=== PATIENT | female | born 1970 | race Caucasian/White ===

== ENCOUNTER → 2016-08-07 | Outpatient (CLI) | payer OTHER ==
--- NOTE | 2016-08-07 18:20 | REP ---
Clinical: Bronchitis. Technique: PA and lateral. Comparison: 06/13/2016. Findings: Stable Clbklm-[id number]-Nzlm with tip in the SVC. Mediastinum and cardiac silhouette normal. Lung mccarty are clear and without consolidation, effusion, or pneumothorax. Skeletal structures are intact. Impression: Stable chest x-ray. No acute cardiopulmonary process or focal consolidation. Signed by Lance Thompson MD 08/07/2016 06:11 P
== END ==
LOC: M WUC 18:01
PROVIDERS: ATTEND Physician Assistant
DX: J20.9 Acute bronchitis, unspecified (principal)

== ENCOUNTER → 2016-08-16 | Outpatient (CLI) | payer OTHER ==
--- NOTE | 2016-09-08 01:25 | ECWPNPC ---
PATIENT NAME: OPAL SRIVASTAVA : 1970 GENDER: FEMALE VISIT DATE: 08/16/2016 DISCHARGE DATE: 08/16/16 1009 VISIT LOCKED DATE TIME: PHYSICIAN: COURTNEY FONTANEZ RESOURCE: COURTNEY FONTANEZ REASON FOR APPOINTMENT 1. FOLLOWUP-BACK/LEGS HISTORY OF PRESENT ILLNESS HISTORY OF PRESENT ILLNESS: PAIN THE PATIENT DESCRIBES THE PAIN... FALL RISK SCREENING: SCREENING :NO FALLS IN THE PAST YEAR TODAY'S VISIT: NOTES: RATES PAIN LEEVEL TODAY 9/10. DESCRIBES PAIN CONSTANT, ACHING , BURNING, SHARP AND STABBING AND SHOOTING. HAS BEEN HAVING INTENSE RIGHT SIDED HEAD PAIN IN THE OCCIPUT AND TEMPRAL AREA. PAIN RADIATES TO RIGHT EAR. HAS BEEN HAVING INTENSE REACTION TO SOUND. LIGHT BOTHERING. THIS HAS BEEN PRESENT FOR 4-5 DAYS. IS HAVING FACIAL TWITCHES. IS HAVING DIFFICULTY WITH LOSS OF BALANCE IN LEFT LEG - HAS NUMBNESSFFROM HIP TO FOOT LEFT LEG. NO DIFFICULTY WITH RIGHT LEG.. CURRENT MEDICATIONS TAKING CYMBALTA 60 MG CAPSULE DELAYED RELEASE PARTICLES 1 CAPSULE ORALLY ONCE A DAY TAKING AMBIEN 10 MG TABLET 1 TABLET AT BEDTIME NEEDED ORALLY ONCE A DAY TAKING ALBUTEROL SULFATE 108 (90 BASE) MCG/ACT AEROSOL POWDER BREATH ACTIVATED 1 PUFF NEEDED INHALATION EVERY 4 HRS TAKING TRAZODONE HCL 150 MG TABLET 1 TABLET AT BEDTIME NEEDED ORALLY ONCE A DAY TAKING FIORICET APAP 325-50-40 CAPSULE 1 CAPSULE NEEDED ORALLY EVERY 8 HOURS PRN FOR PAIN MDD2 TAKING HYDROCODONE-ACETAMINOPHEN 7.5-325 MG TABLET 1 TABLET NEEDED ORALLY EVERY 8 HRS PRN FOR PAIN MDD3 TAKING GABAPENTIN 600 MG TABLET 1 TABLET ORALLY FOUR TIMES DAILY FOR PAIN TAKING MELOXICAM 7.5 MG TABLET 1 TABLET ORALLY ONCE A DAY PRN FOR PAIN MEDICATION LIST REVIEWED AND RECONCILED WITH THE PATIENT PAST MEDICAL HISTORY STATES HISTORY OF NEUROPATHY -- UNKNOWN CAUSE, NOT SURE WHERE DIAGNOSED, OR TX DEGENERATIVE JOINT DISEASE, 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 BULIMIA CHRONIC PAIN, HAS SEEN PAIN MANAGEMENT BEFORE HISTORY OF RENAL STONES, LAST 05/2015 ALLERGIES MACROBID: HIVES: ALLERGY ZOLOFT: HIVES: ALLERGY TOPAMAX: PALPITATIONS: SIDE EFFECTS KEFLEX: HIVES: ALLERGY VANCOMYCIN HCL: ITCHING: ALLERGY AMOXICILLIN: RASH: ALLERGY SOCIAL HISTORY GENERAL: TOBACCO USE ARE YOU A:NONSMOKER LEARNING 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 NEW PATIENT PAIN DIARY TODAY'S VISITNOTES FROM 0-10, WHAT LEVEL IS YOUR PAIN TODAY?0 PAIN CLINIC PFS, CLERGY, PUBLIC HEALTH REFERRALS PFS REFERRAL NEEDED?NO CLERGY REFERRAL NEEDED?NO PUBLIC HEALTH REFERRAL NEEDED?NO WAS THE PROVIDER NOTIFIED OF ANY PERTINENT INFO?NO PFS REFERRAL NEEDED?NO CLERGY REFERRAL NEEDED?NO PUBLIC HEALTH REFERRAL NEEDED?NO WAS THE PROVIDER NOTIFIED OF ANY PERTINENT INFO?NO REVIEW OF SYSTEMS CONSTITUTIONAL: ANY CHANGE IN YOUR MEDICAL CONDITION? NO . CHILLS NO . FEVER NO . INFECTION: DO YOU HAVE NEW INFECTIONS? NO . DO YOU HAVE HISTORY OF MRSA? NO . MUSCULOSKELETAL: ANY NEW PATTERNS OF PAIN OR NUMBNESS? YES, PAIN IN THE BACK OF HEAD AND LEFT LEG WEAKER AND NUMBNESS . GASTROENTEROLOGY: ANY NEW CHANGE IN BOWEL CONTROL? NO . GENITOURINARY: ANY NEW CHANGE IN BLADDER CONTROL? NO . IS THERE A CHANCE YOU COULD BE ? NO . HEMATOLOGY/LYMPH: DO YOU TAKE ANY BLOOD THINNERS? (FOR EXAMPLE- COUMADIN, PLAVIX, AGGRENOX, PLATEL, PRADAXA, OR XARELTO) NO . WHEN WAS YOUR LAST DOSE? DATE: TIME: . NEUROLOGY: HAVE YOU FALLEN IN THE PAST 6 MONTHS? NO . ANY NEW EXTREMITY NUMBNESS OR WEAKNESS? NO . CARDIOLOGY: DO YOU HAVE A PACEMAKER OR DEFIBRILLATOR? NO . RESPIRATORY: HAVE YOU BEEN SICK IN THE PAST WEEK? YES - HAS HAD PNEUMONIA, BRONCHITIS AND PERSISTANT COUGH. . FEVER NO . FLU LIKE SYMPTOMS? NO . COUGH YES . INTEGUMENTARY: DO YOU HAVE ANY RASHES OR OPEN SORES? NO . ALLERGIC/IMMUNO: ARE YOU ALLERGIC TO SHELLFISH OR IV DYE? NO . ANY NEW ALLERGIES? NO . PSYCHIATRIC: DO YOU HAVE THOUGHTS OF HURTING YOURSELF OR SOMEONE ELSE? NO . ARE YOU ABUSED, NEGLECTED, OR IN AN UNSAFE ENVIRONMENT? NO . ENDOCRINOLOGY: ARE YOU DIABETIC? NO . OTHER: DO YOU NEED ANY PRESCRIPTIONS? YES . IF YES, PLEASE LIST: GABAPENTIN, FIORICET, HYDROCODONE, MELOXICAM, AND AMBIEN . ANY NEW PROBLEMS WITH YOUR MEDICATIONS? NO . WHEN DID YOU LAST EAT? ____ . WHEN DID YOU LAST DRINK? ____ . WHAT DID YOU LAST DRINK? ____ . NAME OF PERSON DRIVING YOU HOME? ____ . DO YOU HAVE ANY OTHER QUESTIONS OR CONCERNS NO . PSYCHOLOGY: DEPRESSION WILL BE SEEING [facility] NEXT WEEK IN [facility] . REVIEWED BY: PROVIDER: COURTNEY CORADO . VITAL SIGNS WT 220 LBS, HT 69 IN, BMI 32.48 INDEX, BP 122/62 MANUAL, HR 94 /MIN, RR 16 /MIN, TEMP 96.0 F, OXYGEN SAT % 96, NA INITIALS TL 0911, REVIEWED BY: CS. EXAMINATION GENERAL EXAMINATION: PSYCHALERT , ORIENTED X 3 , APPROPRIATE MOOD AND AFFECT . LUNGS:CLEAR TO AUSCULTATION BILATERALLY, DECREASED AIR ENTRY AT BASES. HEART:HEART RATE REGULAR. MUSCULOSKELETAL:MUSCLE STRENGTH TESTING 5/5 BILATERAL UPPER AND LOWER EXTREMITIES. POINT TENDERNESS OVER THE MIDTHORACIC SPINOUS PROCESSES AND ACROSS THE THORACIC PARAVERTEBRAL MUSCULATURE. POINT TENDERNESS OVER THE LUMBAR SPINOUS PROCESSES AND ACROSS THE LUMBAR PARAVERTEBRAL MUSCULATURE. ABLE TO RISE TO A STANDING POSITION. GAIT IS SLOW BUT NONANTALGIC. TRIGGER POINTS ARE IDENTIFIED WITH PALPATION OVER THE MIDTHORACIC AND LUMBAR MUSCLES. TIGHT FIBROUS BANDS ARE IDENTIFIED. RESTRICTION OF RANGE OF MOTION WITH BACK ROTATION FLEXION AND EXTENSION.. ASSESSMENTS MYALGIA - M79.1 (PRIMARY) INTERVERTEBRAL DISC DISORDERS WITH RADICULOPATHY, LUMBAR REGION - M51.16 INTERVERTEBRAL DISC DISORDERS WITH RADICULOPATHY, LUMBOSACRAL REGION - M51.17 INTRACTABLE MIGRAINE WITHOUT AURA AND WITHOUT STATUS MIGRAINOSUS - G43.019 TREATMENT MYALGIA REFILL CYMBALTA CAPSULE DELAYED RELEASE PARTICLES, 60 MG, 1 CAPSULE, ORALLY, ONCE A DAY, 30 DAY(S), 30, REFILLS 1 REFILL AMBIEN TABLET, 10 MG, 1 TABLET AT BEDTIME NEEDED, ORALLY, ONCE A DAY, 30 DAY(S), 15, REFILLS 0 STOP HYDROCODONE-ACETAMINOPHEN TABLET, 7.5-325 MG, 1 TABLET NEEDED, ORALLY, EVERY 8 HRS PRN FOR PAIN MDD3 REFILL FIORICET APAP CAPSULE, 325-50-40, 1 CAPSULE NEEDED, ORALLY, EVERY 8 HOURS PRN FOR PAIN MDD2, 30 DAY(S), 20, REFILLS 1 REFILL MELOXICAM TABLET, 7.5 MG, 1 TABLET, ORALLY, ONCE A DAY PRN FOR PAIN, 30 DAY(S), 30, REFILLS 1 REFILL GABAPENTIN TABLET, 600 MG, 1 TABLET, ORALLY, FOUR TIMES DAILY FOR PAIN, 30 DAY(S), 120, REFILLS 2 START NORCO TABLET, 5-325 MG, 1 TABLET NEEDED, ORALLY, EVERY 6 -8 HRS MDD-3, 30 DAY(S), 90, REFILLS 0 PROCEDURE CODES FA211 ESTABILISHED PATIENT [facility] CHARGE FOLLOW UP 26-28 DAYS ELECTRONICALLY SIGNED BY RAMU SAUL ON 09/07/2016 AT 10:24 AM EST DISCLAIMER : THIS IS A VISIT SUMMARY EXTRACTED FROM THE [employer] CHART. IT IS NOT A COPY OF THE [employer] PROGRESS NOTE. MTDD
== END ==
LOC: M PAIN 09:20
PROVIDERS: ATTEND Nurse Practitioner Family
DX: M79.1 Myalgia (principal); M51.16 Intervertebral disc disorders with radiculopathy, lumbar region; M51.17 Intervertebral disc disorders with radiculopathy, lumbosacral region; G43.019 Migraine without aura, intractable, without status migrainosus; G89.29 Other chronic pain; Z79.891 Long term (current) use of opiate analgesic; Z79.899 Other long term (current) drug therapy; Z88.0 Allergy status to penicillin; Z88.1 Allergy status to other antibiotic agents; Z88.8 Allergy status to other drugs, medicaments and biological substances

== ENCOUNTER 2016-09-13 10:46 | Emergency (ER) | payer OTHER ==
[2016-09-13] MEDS ORDERED: KETOROLAC 30 MG/ML VIAL (J1885) As Ordered ONE (11:19)
[2016-09-13] MEDS ORDERED: diphenhydrAMINE 25 MG CAP As Ordered ONE (11:48)
[2016-09-13] MEDS ORDERED: methylPREDNISolone INJ 125 MG/2 ML VIAL (J2930) As Ordered ONE (11:48)
[2016-09-13] MEDS ORDERED: FAMOTIDINE 20 MG TAB As Ordered ONE (11:48)
--- NOTE | 2016-09-13 13:28 | EDDOCDS ---
Nurse's Notes [facility] Name: Yu Monahan Age: 45 yrs Sex: Female : 1970 Arrival Date: 09/13/2016 Time: 10:46 Bed TR8 Private MD: Diagnosis: Pain in left leg Presentation: 09/13 10:51 Presenting complaint: Patient states: Left leg cramping progressed to numbness since mlb1 0100 also reports headache and cough. Adult Sepsis Screening: The patient does not have new or worsening altered mentation. Patient's respiratory rate is less than 22. Systolic blood pressure is greater than 100. Patient has a qSOFA score of 0- Negative Sepsis Screen. Suicide/Homicide risk assessment- the patient denies having any suicidal and/or homicidal ideations and does not present with any other emotional, behavioral or mental health complaints. Status: Patient is not a supervisor volunteer services or dependent. Transition of care: patient was not received from another setting of care. 10:51 Acuity: FRANCES Level 4 mlb1 10:51 Method Of Arrival: Walkin/Carried/Asstd mlb1 Triage Assessment: 10:53 General: Appears in no apparent distress, Behavior is cooperative. Pain: Location: left mlb1 hip, head Pain currently is 9 out of 10 on a pain scale. HIV screening NA for this visit Offered previously. 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 gabapentin 600 mg Oral tab 1 tab 3 times per day 2. [place] 5-325 mg Oral tab 1 tab every 4-6 hours (Last dose: 09/12/2016 20:30) 3. trazodone 100 mg Oral tab nightly - PMHx: bulemia; Chronic UTI; L4, L5 disc problems, chronic low back pain; Migraines; neuropathy; Scoliosis; stomach problems, no diagnosis; - PSHx: Breast Reduction; Cholecystectomy; Gall Bladder Removal; cyst removal from ovaries; Sinus Surgery; kidney stones surgeries; Infusaport; - Social history: Smoking status: Patient states former smoker of tobacco. No barriers to communication noted, The patient speaks fluent Georgian, Speaks appropriately for age. - Family history: No immediate family members are acutely ill. - : The pt / caregiver states he / she is not on anticoagulants. Home medication list is obtained from the patient. - Exposure Risk Screening:: None identified. Screenin:29 Screening information is obtained from the patient. Fall risk: No risks identified. mb9 Assistance ADL's: requires no assistance with activities of daily living. Abuse/DV Screen: The patient / caregiver reports he/she is: not in a situation that causes fear, pain or injury. Nutritional screening: No deficits noted. Advance Directives: There is no active DNR order. home support is adequate. Assessment: 11:29 General: Appears uncomfortable, Behavior is appropriate for age, cooperative. Pain: mb9 Location: left leg Pain currently is 5 out of 10 on a pain scale. Respiratory: Airway is patent Respiratory effort is even, unlabored. 12:01 Reassessment: Patient states symptoms have not improved. General: Appears mb9 uncomfortable, Behavior is fussy. Derm: pt appears to have a few small bumps to bilateral forearms. Reports itching. 12:39 Reassessment: Patient states symptoms have not improved. General: Appears mb9 uncomfortable, Behavior is appropriate for age, cooperative. Pain: Location: left leg Pain currently is 5 out of 10 on a pain scale. Vital Signs: 10:48 BP 151 / 95 RA Sitting (auto/reg); Pulse 98; Resp 18; Temp 98.2(O); Pulse Ox 98% on jrd R/A; Weight 100.7 kg (R); Height 5 ft. 9 in. (175.26 cm) (R); Pain 9/10; 12:38 BP 136 / 73; Pulse 79; Resp 17; Temp 98.2(T); Pulse Ox 100% on R/A; mb9 12:38 Pain 5/10; mb9 10:48 Body Mass Index 32.78 (100.70 kg, 175.26 cm) [facility] Vitals: 10:48 Log In Time: September 13, 2016 at 10:40. [facility] ED Course: 10:48 Patient visited by Tha Tavares PCA. jrd 10:48 Patient moved to Waiting jrd 10:49 Patient visited by Tha Tavares PCA. jrd 10:49 Patient moved to Pre RCE jrd 10:[address] Mari RN. mlb1 10:50 Patient moved to Triage 1 mlb1 10:51 Triage Initiated mlb1 10:[address] Mari RN. mlb1 11:03 [facility] Solis [facility] dt4 11:03 Gopal Oden MD is Attending Physician. dt4 11:03 Patient visited by Juju Solis PA-C. dt4 11:21 Patient moved to PD mb9 11:29 The patient / caregiver is instructed regarding the plan of care and ED course. mb9 11:29 No IV's were initiated during this patient's visit. No procedures done that require mb9 assistance. 11:31 [facility] Payment Agreement was scanned into [employer] and attached to record. lg 12:[address] RN. mb9 12:30 [facility] is Referral Physician. dt4 12:40 Patient moved to TR8 mb9 Administered Medications: 11:24 Drug: ketorolac 60 mg [ketorolac 30 mg/mL (1 mL) injection solution (2 mL)] Route: IM; mb9 Site: right gluteus; 12:38 Follow up: Pain 5/10 Adult; Response: Pain is unchanged, physician notified mb9 12:00 Drug: methylPREDNISolone Sodium Succinate 125 mg [methylprednisolone sodium succ 125 mg mb9 solution for injection (125 mg)] Route: IM; Site: left gluteus; 12:00 Drug: diphenhydrAMINE 50 mg [diphenhydramine 25 mg capsule (2 caps)] Route: PO; mb9 12:00 Drug: Famotidine 20 mg [famotidine 20 mg tablet (1 tabs)] Route: PO; mb9 Order Results: There are currently no results for this order. Outcome: 12:30 Discharge ordered by Provider. dt4 12:39 Discharge Assessment: patient administered narcotics - no. The following High Risk mb9 Discharge criteria are identified: None. Condition: good Condition: stable Condition: improved. Discharge instructions given to patient, Instructed on discharge instructions, follow up and referral plans. medication usage, Demonstrated understanding of instructions, medications, Pt was receptive of discharge instructions/ teaching. No special radiology studies were completed. Property :Personal belongings accompany Pt. 13:27 Patient left the ED. mb9 Signatures: Matias Vasques, Reg Reg lg Lane Mari, RN RN mlb1 Juju Solis PA-C [facility]AP[facility] dt4 Tha Tavares, BODY MASKER BODY MASKER jrd Lane Goldman,RN RN mb9 CARLAD
--- NOTE | 2016-09-13 13:28 | EDDOCDS ---
Physician Documentation [facility] Name: Yu Monahan Age: 45 yrs Sex: Female : 1970 Arrival Date: 09/13/2016 Time: 10:46 Bed TR8 Private MD: Disposition: 09/13/16 12:30 Discharged to Home/Self Care. Impression: Pain in left leg. - Condition is Stable. - Discharge Instructions: Musculoskeletal Pain. - Medication Reconciliation, Local Pharmacy Hours form. - Follow up: Emergency Department; When: As needed; Reason: Worsening of conditions. Follow up: [facility]; When: Call to arrange an appointment; Reason: Recheck today's complaints, Continuance of care, To establish care. - Problem is new. - Symptoms are unchanged. - Notes: PLEASE FOLLOW UP WITH YOUR PRIMARY CARE PROVIDER IN THE NEXT FEW DAYS TO RECHECK YOUR SYMPTOMS. YOU MAY TAKE YOUR PAIN MEDICATIONS AT HOME, DIRECTED FOR PAIN. Historical: - Allergies: Ciprofloxacin; Keflex; Macrobid; Topamax; Vancomycin; Zoloft; - Home Meds: 1. gabapentin 600 mg Oral tab 1 tab 3 times per day 2. [place] 5-325 mg Oral tab 1 tab every 4-6 hours (Last dose: 09/12/2016 20:30) 3. trazodone 100 mg Oral tab nightly - PMHx: bulemia; Chronic UTI; L4, L5 disc problems, chronic low back pain; Migraines; neuropathy; Scoliosis; stomach problems, no diagnosis; - PSHx: Breast Reduction; Cholecystectomy; Gall Bladder Removal; cyst removal from ovaries; Sinus Surgery; kidney stones surgeries; Infusaport; - Social history: Smoking status: Patient states former smoker of tobacco. No barriers to communication noted, The patient speaks fluent Luxembourger, Speaks appropriately for age. - Family history: No immediate family members are acutely ill. - : The pt / caregiver states he / she is not on anticoagulants. Home medication list is obtained from the patient. - Exposure Risk Screening:: None identified. BACTERIOLOGIST MEDICAL: 09/13 10:54 LMP 08/23/2016 mlb1 Vital Signs: 10:48 BP 151 / 95 RA Sitting (auto/reg); Pulse 98; Resp 18; Temp 98.2(O); Pulse Ox 98% on jrd R/A; Weight 100.7 kg / 222.01 lbs (R); Height 5 ft. 9 in. (175.26 cm) (R); Pain 9/10; 12:38 BP 136 / 73; Pulse 79; Resp 17; Temp 98.2(T); Pulse Ox 100% on R/A; mb9 12:38 Pain 5/10; mb9 10:48 Body Mass Index 32.78 (100.70 kg, 175.26 cm) jrd MDM: 11:14 Financial registration complete. lg 11:17 ketorolac 60 mg IM once ordered. dt4 11:31 [facility] Payment Agreement was scanned into [employer] and attached to record. lg 11:35 methylPREDNISolone Sodium Succinate 125 mg IM once ordered. dt4 11:36 diphenhydrAMINE 50 mg PO once ordered. dt4 11:36 Famotidine 20 mg PO once ordered. dt4 Administered Medications: 11:24 Drug: ketorolac 60 mg [ketorolac 30 mg/mL (1 mL) injection solution (2 mL)] Route: IM; mb9 Site: right gluteus; 12:38 Follow up: Pain 5/10 Adult; Response: Pain is unchanged, physician notified mb9 12:00 Drug: methylPREDNISolone Sodium Succinate 125 mg [methylprednisolone sodium succ 125 mg mb9 solution for injection (125 mg)] Route: IM; Site: left gluteus; 12:00 Drug: diphenhydrAMINE 50 mg [diphenhydramine 25 mg capsule (2 caps)] Route: PO; mb9 12:00 Drug: Famotidine 20 mg [famotidine 20 mg tablet (1 tabs)] Route: PO; mb9 Signatures: Matias Vasques, Vlad Reg lg Lane Mari, RN RN mlb1 Juju Solis PA-C PAMadi dt4 Lane Goldman RN RN mb9 The chart was reviewed and I authenticate all verbal orders and agree with the evaluation and treatment provided.Attachments: 11:31 [facility] Payment Agreement lg MTDD
--- NOTE | 2016-09-15 14:28 | EDDOCDS ---
Nurse's Notes [facility] Name: Yu Monahan Age: 45 yrs Sex: Female : 1970 Arrival Date: 09/13/2016 Time: 10:46 Bed TR8 Private MD: Diagnosis: Pain in left leg Presentation: 09/13 10:51 Presenting complaint: Patient states: Left leg cramping progressed to numbness since mlb1 0100 also reports headache and cough. Adult Sepsis Screening: The patient does not have new or worsening altered mentation. Patient's respiratory rate is less than 22. Systolic blood pressure is greater than 100. Patient has a qSOFA score of 0- Negative Sepsis Screen. Suicide/Homicide risk assessment- the patient denies having any suicidal and/or homicidal ideations and does not present with any other emotional, behavioral or mental health complaints. 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 Transition of care: patient was not received from another setting of care. 10:51 Acuity: FRANCES Level 4 mlb1 10:51 Method Of Arrival: Walkin/Carried/Asstd mlb1 Triage Assessment: 10:53 General: Appears in no apparent distress, Behavior is cooperative. Pain: Location: left mlb1 hip, head Pain currently is 9 out of 10 on a pain scale. HIV screening NA for this visit Offered previously. 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 gabapentin 600 mg Oral tab 1 tab 3 times per day 2. [place] 5-325 mg Oral tab 1 tab every 4-6 hours (Last dose: 09/12/2016 20:30) 3. trazodone 100 mg Oral tab nightly - PMHx: bulemia; Chronic UTI; L4, L5 disc problems, chronic low back pain; Migraines; neuropathy; Scoliosis; stomach problems, no diagnosis; - PSHx: Breast Reduction; Cholecystectomy; Gall Bladder Removal; cyst removal from ovaries; Sinus Surgery; kidney stones surgeries; Infusaport; - Social history: Smoking status: Patient states former smoker of tobacco. No barriers to communication noted, The patient speaks fluent Setswana, Speaks appropriately for age. - Family history: No immediate family members are acutely ill. - : The pt / caregiver states he / she is not on anticoagulants. Home medication list is obtained from the patient. - Exposure Risk Screening:: None identified. Screenin:29 Screening information is obtained from the patient. Fall risk: No risks identified. mb9 Assistance ADL's: requires no assistance with activities of daily living. Abuse/DV Screen: The patient / caregiver reports he/she is: not in a situation that causes fear, pain or injury. Nutritional screening: No deficits noted. Advance Directives: There is no active DNR order. home support is adequate. Assessment: 11:29 General: Appears uncomfortable, Behavior is appropriate for age, cooperative. Pain: mb9 Location: left leg Pain currently is 5 out of 10 on a pain scale. Respiratory: Airway is patent Respiratory effort is even, unlabored. 12:01 Reassessment: Patient states symptoms have not improved. General: Appears mb9 uncomfortable, Behavior is fussy. Derm: pt appears to have a few small bumps to bilateral forearms. Reports itching. 12:39 Reassessment: Patient states symptoms have not improved. General: Appears mb9 uncomfortable, Behavior is appropriate for age, cooperative. Pain: Location: left leg Pain currently is 5 out of 10 on a pain scale. Vital Signs: 10:48 BP 151 / 95 RA Sitting (auto/reg); Pulse 98; Resp 18; Temp 98.2(O); Pulse Ox 98% on jrd R/A; Weight 100.7 kg (R); Height 5 ft. 9 in. (175.26 cm) (R); Pain 9/10; 12:38 BP 136 / 73; Pulse 79; Resp 17; Temp 98.2(T); Pulse Ox 100% on R/A; mb9 12:38 Pain 5/10; mb9 10:48 Body Mass Index 32.78 (100.70 kg, 175.26 cm) [facility] Vitals: 10:48 Log In Time: September 13, 2016 at 10:40. [facility] ED Course: 10:48 Patient visited by Tha Tavares PCA. jrd 10:48 Patient moved to Waiting jrd 10:49 Patient visited by Tha Tavares PCA. jrd 10:49 Patient moved to Pre RCE jrd 10:[address] Mari RN. mlb1 10:50 Patient moved to Triage 1 mlb1 10:51 Triage Initiated mlb1 10:[address] Mari RN. mlb1 11:03 [facility]. dt4 11:03 Gopal Oden MD is Attending Physician. dt4 11:03 Patient visited by Juju Solis PA-C. dt4 11:21 Patient moved to PD mb9 11:29 The patient / caregiver is instructed regarding the plan of care and ED course. mb9 11:29 No IV's were initiated during this patient's visit. No procedures done that require mb9 assistance. 11:31 [facility] Payment Agreement was scanned into [employer] and attached to record. lg 12:[address] RN. mb9 12:30 [facility] is Referral Physician. dt4 12:40 Patient moved to TR8 mb9 14:58 T-Sheet-- Draft Copy was scanned into [employer] and attached to record. klr Administered Medications: 11:24 Drug: ketorolac 60 mg [ketorolac 30 mg/mL (1 mL) injection solution (2 mL)] Route: IM; mb9 Site: right gluteus; 12:38 Follow up: Pain 5/10 Adult; Response: Pain is unchanged, physician notified mb9 12:00 Drug: methylPREDNISolone Sodium Succinate 125 mg [methylprednisolone sodium succ 125 mg mb9 solution for injection (125 mg)] Route: IM; Site: left gluteus; 12:00 Drug: diphenhydrAMINE 50 mg [diphenhydramine 25 mg capsule (2 caps)] Route: PO; mb9 12:00 Drug: Famotidine 20 mg [famotidine 20 mg tablet (1 tabs)] Route: PO; mb9 Order Results: There are currently no results for this order. Outcome: 12:30 Discharge ordered by Provider. dt4 12:39 Discharge Assessment: patient administered narcotics - no. The following High Risk mb9 Discharge criteria are identified: None. Condition: good Condition: stable Condition: improved. Discharge instructions given to patient, Instructed on discharge instructions, follow up and referral plans. medication usage, Demonstrated understanding of instructions, medications, Pt was receptive of discharge instructions/ teaching. No special radiology studies were completed. Property :Personal belongings accompany Pt. 13:27 Patient left the ED. mb9 Signatures: Matias Vasques, Reg Reg lg Lane Mari RN RN mlb1 Juju Solis PA-C PA-C dt4 Tha Tavares, PRETTY KEY BED INSTALLER jrd Lane Goldman RN RN mb9 Shreya Austin Chart Complete MTDD
--- NOTE | 2016-09-15 14:28 | EDDOCDS ---
Physician Documentation [facility] Name: Yu Monahan Age: 45 yrs Sex: Female : 1970 Arrival Date: 09/13/2016 Time: 10:46 Bed TR8 Private MD: Disposition: 09/13/16 12:30 Discharged to Home/Self Care. Impression: Pain in left leg. - Condition is Stable. - Discharge Instructions: Musculoskeletal Pain. - Medication Reconciliation, Local Pharmacy Hours form. - Follow up: Emergency Department; When: As needed; Reason: Worsening of conditions. [facility]: [facility]; When: Call to arrange an appointment; Reason: Recheck today's complaints, Continuance of care, To establish care. - Problem is new. - Symptoms are unchanged. - Notes: PLEASE FOLLOW UP WITH YOUR PRIMARY CARE PROVIDER IN THE NEXT FEW DAYS TO RECHECK YOUR SYMPTOMS. YOU MAY TAKE YOUR PAIN MEDICATIONS AT HOME, DIRECTED FOR PAIN. Historical: - Allergies: Ciprofloxacin; Keflex; Macrobid; Topamax; Vancomycin; Zoloft; - Home Meds: 1. gabapentin 600 mg Oral tab 1 tab 3 times per day 2. [place] 5-325 mg Oral tab 1 tab every 4-6 hours (Last dose: 09/12/2016 20:30) 3. trazodone 100 mg Oral tab nightly - PMHx: bulemia; Chronic UTI; L4, L5 disc problems, chronic low back pain; Migraines; neuropathy; Scoliosis; stomach problems, no diagnosis; - PSHx: Breast Reduction; Cholecystectomy; Gall Bladder Removal; cyst removal from ovaries; Sinus Surgery; kidney stones surgeries; Infusaport; - Social history: Smoking status: Patient states former smoker of tobacco. No barriers to communication noted, The patient speaks fluent Mexican, Speaks appropriately for age. - Family history: No immediate family members are acutely ill. - : The pt / caregiver states he / she is not on anticoagulants. Home medication list is obtained from the patient. - Exposure Risk Screening:: None identified. CASE PICKER: 09/13 10:54 LMP 08/23/2016 mlb1 Vital Signs: 10:48 BP 151 / 95 RA Sitting (auto/reg); Pulse 98; Resp 18; Temp 98.2(O); Pulse Ox 98% on jrd R/A; Weight 100.7 kg / 222.01 lbs (R); Height 5 ft. 9 in. (175.26 cm) (R); Pain 9/10; 12:38 BP 136 / 73; Pulse 79; Resp 17; Temp 98.2(T); Pulse Ox 100% on R/A; mb9 12:38 Pain 5/10; mb9 10:48 Body Mass Index 32.78 (100.70 kg, 175.26 cm) jrd MDM: 11:14 Financial registration complete. lg 11:17 ketorolac 60 mg IM once ordered. dt4 11:31 [facility] Payment Agreement was scanned into [employer] and attached to record. lg 11:35 methylPREDNISolone Sodium Succinate 125 mg IM once ordered. dt4 11:36 diphenhydrAMINE 50 mg PO once ordered. dt4 11:36 Famotidine 20 mg PO once ordered. dt4 14:58 T-Sheet-- Draft Copy was scanned into [employer] and attached to record. klr Administered Medications: 11:24 Drug: ketorolac 60 mg [ketorolac 30 mg/mL (1 mL) injection solution (2 mL)] Route: IM; mb9 Site: right gluteus; 12:38 Follow up: Pain 5/10 Adult; Response: Pain is unchanged, physician notified mb9 12:00 Drug: methylPREDNISolone Sodium Succinate 125 mg [methylprednisolone sodium succ 125 mg mb9 solution for injection (125 mg)] Route: IM; Site: left gluteus; 12:00 Drug: diphenhydrAMINE 50 mg [diphenhydramine 25 mg capsule (2 caps)] Route: PO; mb9 12:00 Drug: Famotidine 20 mg [famotidine 20 mg tablet (1 tabs)] Route: PO; mb9 Signatures: Matias Vasques Reg Reg lg Lane Mari RN RN mlb1 Juju Solis PA-C PA-C dt4 Lane Goldman RN RN mb9 Shreya Austin The chart was reviewed and I authenticate all verbal orders and agree with the evaluation and treatment provided.Attachments: 11:31 [facility] Payment Agreement lg 14:58 T-Sheet-- Draft Copy klr Chart Complete MTDD
--- NOTE | 2016-09-15 14:28 | EDDOCDS ---
Physician Documentation [facility] Name: Yu Monahan Age: 45 yrs Sex: Female : 1970 Arrival Date: 09/13/2016 Time: 10:46 Bed TR8 Private MD: Disposition: 09/13/16 12:30 Discharged to Home/Self Care. Impression: Pain in left leg. - Condition is Stable. - Discharge Instructions: Musculoskeletal Pain. - Medication Reconciliation, Local Pharmacy Hours form. - Follow up: Emergency Department; When: As needed; Reason: Worsening of conditions. Follow up: [facility]; When: Call to arrange an appointment; Reason: Recheck today's complaints, Continuance of care, To establish care. - Problem is new. - Symptoms are unchanged. - Notes: PLEASE FOLLOW UP WITH YOUR PRIMARY CARE PROVIDER IN THE NEXT FEW DAYS TO RECHECK YOUR SYMPTOMS. YOU MAY TAKE YOUR PAIN MEDICATIONS AT HOME, DIRECTED FOR PAIN. Historical: - Allergies: Ciprofloxacin; Keflex; Macrobid; Topamax; Vancomycin; Zoloft; - Home Meds: 1. gabapentin 600 mg Oral tab 1 tab 3 times per day 2. [place] 5-325 mg Oral tab 1 tab every 4-6 hours (Last dose: 09/12/2016 20:30) 3. trazodone 100 mg Oral tab nightly - PMHx: bulemia; Chronic UTI; L4, L5 disc problems, chronic low back pain; Migraines; neuropathy; Scoliosis; stomach problems, no diagnosis; - PSHx: Breast Reduction; Cholecystectomy; Gall Bladder Removal; cyst removal from ovaries; Sinus Surgery; kidney stones surgeries; Infusaport; - Social history: Smoking status: Patient states former smoker of tobacco. No barriers to communication noted, The patient speaks fluent Bruneian, Speaks appropriately for age. - Family history: No immediate family members are acutely ill. - : The pt / caregiver states he / she is not on anticoagulants. Home medication list is obtained from the patient. - Exposure Risk Screening:: None identified. 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 9 in. (175.26 cm) (R); Pain 9/10; 12:38 BP 136 / 73; Pulse 79; Resp 17; Temp 98.2(T); Pulse Ox 100% on R/A; mb9 12:38 Pain 5/10; mb9 10:48 Body Mass Index 32.78 (100.70 kg, 175.26 cm) jrd MDM: 11:14 Financial registration complete. lg 11:17 ketorolac 60 mg IM once ordered. dt4 11:31 [facility] Payment Agreement was scanned into [employer] and attached to record. lg 11:35 methylPREDNISolone Sodium Succinate 125 mg IM once ordered. dt4 11:36 diphenhydrAMINE 50 mg PO once ordered. dt4 11:36 Famotidine 20 mg PO once ordered. dt4 14:58 T-Sheet-- Draft Copy was scanned into [employer] and attached to record. klr Administered Medications: 11:24 Drug: ketorolac 60 mg [ketorolac 30 mg/mL (1 mL) injection solution (2 mL)] Route: IM; mb9 Site: right gluteus; 12:38 Follow up: Pain 5/10 Adult; Response: Pain is unchanged, physician notified mb9 12:00 Drug: methylPREDNISolone Sodium Succinate 125 mg [methylprednisolone sodium succ 125 mg mb9 solution for injection (125 mg)] Route: IM; Site: left gluteus; 12:00 Drug: diphenhydrAMINE 50 mg [diphenhydramine 25 mg capsule (2 caps)] Route: PO; mb9 12:00 Drug: Famotidine 20 mg [famotidine 20 mg tablet (1 tabs)] Route: PO; mb9 Signatures: Matias Vasques Reg Reg lg Lane Mari RN RN mlb1 Juju Solis PA-C PA-C dt4 Laen Goldman RN RN mb9 Shreya Austin The chart was reviewed and I authenticate all verbal orders and agree with the evaluation and treatment provided.Attachments: 11:31 [facility] Payment Agreement lg 14:58 T-Sheet-- Draft Copy klr Chart Complete MTDD
== END 2016-09-13 13:27 | disposition home or self-care (01) ==
LOC: M ED 10:46
DX: M79.605 Pain in left leg (principal); G62.9 Polyneuropathy, unspecified; F50.2 Bulimia nervosa; Z87.440 Personal history of urinary (tract) infections; M51.86 Other intervertebral disc disorders, lumbar region; G89.29 Other chronic pain; M54.5 Low back pain; G43.909 Migraine, unspecified, not intractable, without status migrainosus; M41.9 Scoliosis, unspecified; K31.9 Disease of stomach and duodenum, unspecified; Z87.891 Personal history of nicotine dependence; Z79.899 Other long term (current) drug therapy; Z88.1 Allergy status to other antibiotic agents; Z88.8 Allergy status to other drugs, medicaments and biological substances
CPT/HCPCS: 96372; 99283; J1885; J2930

== ENCOUNTER → 2016-09-20 | Outpatient (CLI) | payer OTHER ==
--- NOTE | 2016-09-21 23:50 | ECWPNPC ---
PATIENT NAME: OPAL SRIVASTAVA : 1970 GENDER: FEMALE VISIT DATE: 09/20/2016 DISCHARGE DATE: 09/20/16 1115 VISIT LOCKED DATE TIME: PHYSICIAN: COURTNEY FONTANEZ RESOURCE: COURTNEY FONTANEZ REASON FOR APPOINTMENT 1. BACK/LEGS HISTORY OF PRESENT ILLNESS HISTORY OF PRESENT ILLNESS: PAIN THE PATIENT DESCRIBES THE PAIN... FALL RISK SCREENING: SCREENING :NO FALLS IN THE PAST YEAR TODAY'S VISIT: NOTES: RATES PAIN TODAY 03/08. STATES SHE HAS INHERITIED A HOUSE IN [place] AND WILL BE MOVING ON 09/23/16. NOTES PAIN IS CENTEERED IN LOW BACK AND INTO LEFT LEG. TO ER RECENTLY FOR RECENT FALL AND LOSS OF SSENSATION , AND PRESSURE IN LEFT LEG. WAS GIVEN INJECTION FOR PAIN - HAD ALLERGIC REACTION, WAS GIVEN BENEDRYL AND STEROIDS. TORADOL IS BELIEVED TO BE THE NEW ALLERGY. . CURRENT MEDICATIONS TAKING ALBUTEROL SULFATE 108 (90 BASE) MCG/ACT AEROSOL POWDER BREATH ACTIVATED 1 PUFF NEEDED INHALATION EVERY 4 HRS TAKING TRAZODONE HCL 150 MG TABLET 1 TABLET AT BEDTIME NEEDED ORALLY ONCE A DAY TAKING CYMBALTA 60 MG CAPSULE DELAYED RELEASE PARTICLES 1 CAPSULE ORALLY ONCE A DAY TAKING AMBIEN 10 MG TABLET 1 TABLET AT BEDTIME NEEDED ORALLY ONCE A DAY TAKING MELOXICAM 7.5 MG TABLET 1 TABLET ORALLY ONCE A DAY PRN FOR PAIN TAKING FIORICET APAP 325-50-40 CAPSULE 1 CAPSULE NEEDED ORALLY EVERY 8 HOURS PRN FOR PAIN MDD2 TAKING GABAPENTIN 600 MG TABLET 1 TABLET ORALLY FOUR TIMES DAILY FOR PAIN TAKING NORCO 5-325 MG TABLET 1 TABLET NEEDED ORALLY EVERY 6 -8 HRS MDD-3 MEDICATION LIST REVIEWED AND RECONCILED WITH THE PATIENT PAST MEDICAL HISTORY STATES HISTORY OF NEUROPATHY -- UNKNOWN CAUSE, NOT SURE WHERE DIAGNOSED, OR TX DEGENERATIVE JOINT DISEASE, 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 BULIMIA CHRONIC PAIN, HAS SEEN PAIN MANAGEMENT BEFORE HISTORY OF RENAL STONES, LAST 05/2015 ALLERGIES MACROBID: HIVES: ALLERGY ZOLOFT: HIVES: ALLERGY TOPAMAX: PALPITATIONS: SIDE EFFECTS KEFLEX: HIVES: ALLERGY VANCOMYCIN HCL: ITCHING: ALLERGY AMOXICILLIN: RASH: ALLERGY TORADOL: RASH: ALLERGY SURGICAL HISTORY REMOVAL OF KIDNEY STONES 06/2015 CYSTS REMOVED FROM UTERUS 1990 CHOLECYSTECTOMY 1992 REMOVAL OF CYST IN SINUS 2010 RIGHT SHOULDER SURGERY 2013 BREAST REDUCTION 2014 TUBAL LIGATION 2007 ABCESS BUTTOCK 2016 SOCIAL HISTORY GENERAL: TOBACCO USE ARE YOU A:NONSMOKER LEARNING 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 NEW PATIENT PAIN DIARY TODAY'S VISITNOTES FROM 0-10, WHAT LEVEL IS YOUR PAIN TODAY?0 PAIN CLINIC PFS, CLERGY, PUBLIC HEALTH REFERRALS PFS REFERRAL NEEDED?NO CLERGY REFERRAL NEEDED?NO PUBLIC HEALTH REFERRAL NEEDED?NO WAS THE PROVIDER NOTIFIED OF ANY PERTINENT INFO?NO PFS REFERRAL NEEDED?NO CLERGY REFERRAL NEEDED?NO PUBLIC HEALTH REFERRAL NEEDED?NO WAS THE PROVIDER NOTIFIED OF ANY PERTINENT INFO?NO REVIEW OF SYSTEMS CONSTITUTIONAL: ANY CHANGE IN YOUR MEDICAL CONDITION? NO . CHILLS EVERY NIGHT AND ACCOMPANIE DBY HOT FLASHES . FEVER NO . INFECTION: DO YOU HAVE NEW INFECTIONS? NO . DO YOU HAVE HISTORY OF MRSA? NO . MUSCULOSKELETAL: ANY NEW PATTERNS OF PAIN OR NUMBNESS? NO . GASTROENTEROLOGY: GENERAL NO CONSTIPATION OR DIARRHEA.WEIGHT STABLE . ANY NEW CHANGE IN BOWEL CONTROL? NO . GENITOURINARY: ANY NEW CHANGE IN BLADDER CONTROL? NO . IS THERE A CHANCE YOU COULD BE ? NO . HEMATOLOGY/LYMPH: DO YOU TAKE ANY BLOOD THINNERS? (FOR EXAMPLE- COUMADIN, PLAVIX, AGGRENOX, PLATEL, PRADAXA, OR XARELTO) NO . WHEN WAS YOUR LAST DOSE? DATE: TIME: . NEUROLOGY: HAVE YOU FALLEN IN THE PAST 6 MONTHS? NO . ANY NEW EXTREMITY NUMBNESS OR WEAKNESS? NO . HEADACHE PERSISTANT HEADACHE . CARDIOLOGY: DO YOU HAVE A PACEMAKER OR DEFIBRILLATOR? NO . CHEST PAIN WITH ANXIETY . RESPIRATORY: HAVE YOU BEEN SICK IN THE PAST WEEK? NO . FEVER NO . FLU LIKE SYMPTOMS? NO . COUGH NO . INTEGUMENTARY: DO YOU HAVE ANY RASHES OR OPEN SORES? NO . ALLERGIC/IMMUNO: ARE YOU ALLERGIC TO SHELLFISH OR IV DYE? NO . ANY NEW ALLERGIES? NO . PSYCHIATRIC: DO YOU HAVE THOUGHTS OF HURTING YOURSELF OR SOMEONE ELSE? NO . ARE YOU ABUSED, NEGLECTED, OR IN AN UNSAFE ENVIRONMENT? NO . ENDOCRINOLOGY: ARE YOU DIABETIC? NO . OTHER: DO YOU NEED ANY PRESCRIPTIONS? YES PT IS MOVING TO [place] ON SUNDAY AND REQUESTING PRESCRIPTIONS TO HOLD HER UNTIL GETS DOWN THERE. . IF YES, PLEASE LIST: ____ . ANY NEW PROBLEMS WITH YOUR MEDICATIONS? NO . WHEN DID YOU LAST EAT? ____ . WHEN DID YOU LAST DRINK? ____ . WHAT DID YOU LAST DRINK? ____ . NAME OF PERSON DRIVING YOU HOME? ____ . DO YOU HAVE ANY OTHER QUESTIONS OR CONCERNS NO . REVIEWED BY: PROVIDER: COURTNEY CORADO . VITAL SIGNS WT 218 LBS, HT 69 IN, BMI 32.19 INDEX, BP 142/58 MM HG, HR 88 /MIN, RR 16 /MIN, TEMP 98 F,7 F, OXYGEN SAT % 86, SAFE IN ENV? (Y/N) YES, NA INITIALS KG, REVIEWED BY: KG. EXAMINATION GENERAL EXAMINATION: PSYCHALERT , ORIENTED X 3 , APPROPRIATE MOOD AND AFFECT . LUNGS:CLEAR TO AUSCULTATION BILATERALLY, DECREASED AIR ENTRY AT BASES. HEART:HEART RATE REGULAR. MUSCULOSKELETAL:MUSCLE STRENGTH TESTING 5/5 BILATERAL UPPER AND LOWER EXTREMITIES. POINT TENDERNESS OVER THE MIDTHORACIC SPINOUS PROCESSES AND ACROSS THE THORACIC PARAVERTEBRAL MUSCULATURE. POINT TENDERNESS OVER THE LUMBAR SPINOUS PROCESSES AND ACROSS THE LUMBAR PARAVERTEBRAL MUSCULATURE. ABLE TO RISE TO A STANDING POSITION. GAIT IS SLOW BUT NONANTALGIC. TRIGGER POINTS ARE IDENTIFIED WITH PALPATION OVER THE MIDTHORACIC AND LUMBAR MUSCLES. TIGHT FIBROUS BANDS ARE IDENTIFIED. RESTRICTION OF RANGE OF MOTION WITH BACK ROTATION FLEXION AND EXTENSION.. ASSESSMENTS MYALGIA - M79.1 (PRIMARY) TREATMENT MYALGIA NOTES: I WILL SEND ONE MORE MONTHS SUPPLY OF MEDS (SEPTEMBER) TO [facility]. WALK ABLE - DO AT LEAST 100 FT PER DAY. CLINICAL NOTES: ISTOP REGISTRY REVIEWED AND DEMNOSTRATES COMPLLIANCE. BRINGS IN MEDICATIONS WHICH IS APPROPRIATE FOR WHAT WAS DISPENSED. RECENT URINE TOXICOLOGY REVIEWED. NO UNAUTHORIZED MEDICATIONS. NO ILLICIT SUBSTANCES AND PRESCRIBED MEDICATIONS WERE PRESENT. PROCEDURE CODES FA211 ESTABILISHED PATIENT [facility] CHARGE DISPOSITION & COMMUNICATION FOLLOW UP CALL IF APPOINTMENT NEEDED. ELECTRONICALLY SIGNED BY RAMU SAUL ON 09/21/2016 AT 01:35 PM EST DISCLAIMER : THIS IS A VISIT SUMMARY EXTRACTED FROM THE [employer] CHART. IT IS NOT A COPY OF THE [employer] PROGRESS NOTE. SHAHRAM
== END ==
LOC: M PAIN 10:40
PROVIDERS: ATTEND Nurse Practitioner Family
DX: Z09 Encounter for follow-up examination after completed treatment for conditions other than malignant neoplasm (principal); G89.29 Other chronic pain; M79.1 Myalgia; M51.16 Intervertebral disc disorders with radiculopathy, lumbar region; M51.17 Intervertebral disc disorders with radiculopathy, lumbosacral region; G43.019 Migraine without aura, intractable, without status migrainosus; Z88.8 Allergy status to other drugs, medicaments and biological substances; Z88.1 Allergy status to other antibiotic agents; Z79.891 Long term (current) use of opiate analgesic; Z79.899 Other long term (current) drug therapy; Z86.59 Personal history of other mental and behavioral disorders

== ENCOUNTER 2023-03-12 10:24 | Emergency (ER) | payer OTHER ==
[~2023-03-12] VITALS: Ht 175.3 cm; Wt 83.4 kg
[2023-03-12 10:25] VITALS: BP 116/81; TEMP 97; O2SAT 99
[2023-03-13] MEDS ORDERED: IBUP-1022 PO (18:30)
== END 2023-03-12 10:51 | disposition left against medical advice (07) ==
LOC: M ED 10:24
DX: Z53.21 Procedure and treatment not carried out due to patient leaving prior to being seen by health care provider (principal)

== ENCOUNTER 2023-03-13 13:46 | Emergency (ER) | payer OTHER ==
[~2023-03-13] VITALS: Ht 175.3 cm; Wt 83.4 kg
[2023-03-13] MEDS ORDERED: IBUP-1022 PO (18:30)
[2023-03-13] MEDS ORDERED: IBUPROFEN 600MG TAB PO ONE (18:30)
[2023-03-13 18:47] VITALS: BP 159/92; TEMP 98.3; O2SAT 98
== END 2023-03-13 18:49 | disposition home or self-care (01) ==
LOC: M ED 13:46
DX: S50.02XA Contusion of left elbow, initial encounter (principal); W22.8XXA Striking against or struck by other objects, initial encounter; Z87.442 Personal history of urinary calculi; Z88.1 Allergy status to other antibiotic agents; Z88.5 Allergy status to narcotic agent; Z88.8 Allergy status to other drugs, medicaments and biological substances; Z79.1 Long term (current) use of non-steroidal anti-inflammatories (NSAID)

== ENCOUNTER 2023-03-15 18:32 | Emergency (ER) | payer OTHER ==
[~2023-03-15] VITALS: Ht 175.3 cm; Wt 79.5 kg
[2023-03-15 18:32] VITALS: BP 159/76; TEMP 98.1; O2SAT 99
[~2023-03-15 18:32] MED LIST: IBUP-1022 PO
[2023-03-16] MEDS ORDERED: ACETAMINOPHEN 500 MG TAB PO ONE (00:20)
[2023-03-16] MEDS ORDERED: IBUP-1022 PO (01:23)
== END 2023-03-16 01:38 | disposition home or self-care (01) ==
LOC: M ED 18:32
DX: I80.02 Phlebitis and thrombophlebitis of superficial vessels of left lower extremity (principal); Z86.79 Personal history of other diseases of the circulatory system; Z87.442 Personal history of urinary calculi; Z88.1 Allergy status to other antibiotic agents; Z88.5 Allergy status to narcotic agent; Z88.8 Allergy status to other drugs, medicaments and biological substances; Z79.1 Long term (current) use of non-steroidal anti-inflammatories (NSAID)

== ENCOUNTER 2023-06-02 08:55 | Emergency (ER) | payer OTHER ==
[~2023-06-02] VITALS: Ht 175.3 cm; Wt 85.7 kg
[2023-06-02] MEDS ORDERED: TRAZ-257 PO (09:13)
[2023-06-02] MEDS ORDERED: GABA800T4 PO (09:13)
[2023-06-02] MEDS ORDERED: NS 1,000 ML IV ONE (11:35)
[2023-06-02] MEDS ORDERED: ONDANSETRON 4MG 2ML VIAL IV ONE (11:35)
[2023-06-02] MEDS ORDERED: ACETAMINOPHEN *IV* 1,000 MG in IV 1 EA IV ONE (11:35)
[2023-06-02 13:38] LABS: BASO % 0.7 % (0.0-1.0); EOS # 0.2 10^3/uL (0.0-0.5); EOS % 3.8 % (0.0-3.0); HEMOGLOBIN 13.6 g/dl (12.0-15.5); LYMPH # 1.2 10^3/uL (1.5-5.0); MEAN CORPUSCULAR HEMOGLOBIN 30.5 pg (27.0-33.0); MEAN CORPUSCULAR HGB CONC 35.8 g/dl (32.0-36.5); MEAN CORPUSCULAR VOLUME 85.2 fl (80.0-96.0); MONO # 0.3 10^3/uL (0.0-0.8); MONO % 5.1 % (2.0-8.0); NEUTROPHILS # 3.8 10^3/uL (1.5-8.5); NEUTROPHILS % 68.7 % (36.0-66.0); PLATELET COUNT, AUTOMATED 228 10^3/uL (150-450); RED BLOOD COUNT 4.46 10^6/uL (4.00-5.40); WHITE BLOOD COUNT 5.5 10^3/uL (4.0-10.0)
[2023-06-02] MEDS ORDERED: ISOVUE-370 76% 100ML VIAL As Ordered ONE (13:44)
[2023-06-02 14:03] LABS: INR 1.05; PROTHROMBIN TIME 13.4 SECONDS (12.5-14.5)
[2023-06-02 14:04] LABS: PARTIAL THROMBOPLASTIN TIME 23.4 SECONDS (24.8-34.2)
[2023-06-02 14:06] LABS: ALBUMIN 3.6 G/DL (3.2-5.2); ALKALINE PHOSPHATASE 80 U/L (46-116); ALT/SGPT < 9 U/L (7.0-40); AST/SGOT 10 U/L (<34); BILIRUBIN,DIRECT < 0.1 MG/DL (<0.4); BILIRUBIN,TOTAL 0.3 MG/DL (0.3-1.2); TOTAL PROTEIN 6.4 G/DL (5.7-8.2)
[2023-06-02] MEDS ORDERED: PERCOCET 5MG/325MG TAB PO ONE (16:15)
[2023-06-02] MEDS ORDERED: KETOROLAC 30 MG/ML 1ML VIAL IV ONE (18:10)
[2023-06-02] MEDS ORDERED: PROV10TA PO (18:23)
[2023-06-02 18:44] VITALS: BP 125/84; TEMP 97.4; O2SAT 99
== END 2023-06-02 19:20 | disposition home or self-care (01) ==
LOC: M ED 08:55
DX: N93.9 Abnormal uterine and vaginal bleeding, unspecified (principal); D25.9 Leiomyoma of uterus, unspecified; F17.200 Nicotine dependence, unspecified, uncomplicated; Z88.1 Allergy status to other antibiotic agents; Z88.5 Allergy status to narcotic agent; Z88.8 Allergy status to other drugs, medicaments and biological substances; Z79.891 Long term (current) use of opiate analgesic; Z79.1 Long term (current) use of non-steroidal anti-inflammatories (NSAID); Z79.899 Other long term (current) drug therapy
CPT/HCPCS: 36415; 74177; 76830; 76856; 80047; 80076; 84702; 85025; 85610; 85730; 86850; 86900; 86901; 93976; 96361; 96374; 96375; 99284; J0131; J1885; J2405; Q9967

== ENCOUNTER 2023-06-05 15:19 | Emergency (ER) | payer OTHER ==
[~2023-06-05] VITALS: Ht 175.3 cm; Wt 60.0 kg
[~2023-06-05 15:19] MED LIST changes: +GABA800T4 PO; +PROV10TA PO; +TRAZ-257 PO
[2023-06-05 17:26] LABS: BASO % 0.5 % (0.0-1.0); EOS # 0.2 10^3/uL (0.0-0.5); EOS % 2.9 % (0.0-3.0); HEMOGLOBIN 13.3 g/dl (12.0-15.5); LYMPH # 1.5 10^3/uL (1.5-5.0); LYMPH % 25.6 % (24.0-44.0); MEAN CORPUSCULAR HEMOGLOBIN 29.8 pg (27.0-33.0); MEAN CORPUSCULAR VOLUME 85.2 fl (80.0-96.0); MONO # 0.3 10^3/uL (0.0-0.8); MONO % 4.5 % (2.0-8.0); NEUTROPHILS # 3.8 10^3/uL (1.5-8.5); NEUTROPHILS % 65.6 % (36.0-66.0); PLATELET COUNT, AUTOMATED 221 10^3/uL (150-450); RED BLOOD COUNT 4.46 10^6/uL (4.00-5.40); WHITE BLOOD COUNT 5.8 10^3/uL (4.0-10.0)
[2023-06-05 17:49] LABS: LIPASE 40 U/L (12-53)
[2023-06-05] MEDS ORDERED: KETOROLAC 30 MG/ML 1ML VIAL IV ONE (17:50)
[2023-06-05] MEDS ORDERED: ACETAMINOPHEN *IV* 1,000 MG in IV 1 EA IV ONE (17:50)
[2023-06-05 17:52] LABS: ALBUMIN 3.9 G/DL (3.2-5.2); ALKALINE PHOSPHATASE 76 U/L (46-116); ALT/SGPT < 9 U/L (7.0-40); AST/SGOT 11 U/L (<34); BILIRUBIN,DIRECT < 0.1 MG/DL (<0.4); BILIRUBIN,TOTAL 0.2 MG/DL (0.3-1.2); BLOOD UREA NITROGEN 12 MG/DL (9-23); CALCIUM LEVEL 9.2 MG/DL (8.5-10.1); CARBON DIOXIDE LEVEL 22 MMOL/L (20-31); CHLORIDE LEVEL 103 MMOL/L (98-107); CREATININE FOR GFR 0.52 MG/DL (0.55-1.30); GLOMERULAR FILTRATION RATE > 60.0 (>51); GLUCOSE, FASTING 367 MG/DL (60-100); POTASSIUM SERUM 4.5 MMOL/L (3.5-5.1); SODIUM LEVEL 135 MMOL/L (136-145); TOTAL PROTEIN 6.8 G/DL (5.7-8.2)
[2023-06-05] MEDS ORDERED: ONDANSETRON 4MG 2ML VIAL IV ONE (18:30)
[2023-06-05] MEDS ORDERED: fentaNYL 100 MCG/2 ML INJECTION IV ONE (18:30)
[2023-06-05] MEDS ORDERED: NS 1,000 ML IV ONE (18:30)
[2023-06-05] MEDS ORDERED: ISOVUE-370 76% 100ML VIAL As Ordered ONE (19:03)
[2023-06-05] MEDS ORDERED: diphenhydrAMINE 50MG/ML VIAL IV STA (19:13)
[2023-06-05 21:16] LABS: HEMOGLOBIN A1c 9.3 % (4.0-6.0)
[2023-06-05] MEDS ORDERED: PROM12.56 PO (21:35)
[2023-06-05] MEDS ORDERED: METF-839 PO (21:35)
[2023-06-05] MEDS ORDERED: HYDR-3713 PO (21:35)
[2023-06-05] MEDS ORDERED: NORCO 5/325MG TABLET (HOME DOSE PACK) PO ONE (21:40)
[2023-06-05 22:29] VITALS: BP 139/59; TEMP 97.7; O2SAT 100
== END 2023-06-05 22:33 | disposition home or self-care (01) ==
LOC: M ED 15:19 → EDBD 15:19 → M ED 22:33
DX: R10.2 Pelvic and perineal pain (principal); R73.09 Other abnormal glucose; Z87.442 Personal history of urinary calculi; Z86.79 Personal history of other diseases of the circulatory system; Z88.0 Allergy status to penicillin; Z88.1 Allergy status to other antibiotic agents; Z88.5 Allergy status to narcotic agent; Z88.8 Allergy status to other drugs, medicaments and biological substances; Z79.891 Long term (current) use of opiate analgesic; Z79.4 Long term (current) use of insulin; Z79.899 Other long term (current) drug therapy
CPT/HCPCS: 74177; 80048; 80076; 81001; 83036; 83690; 85025; 87086; 96361; 96365; 96375; 99284; J0131; J1200; J1885; J2405; J3010; Q9967

== ENCOUNTER 2023-06-15 16:31 | Emergency (ER) | payer OTHER ==
[~2023-06-15] VITALS: Ht 175.3 cm; Wt 85.9 kg
[~2023-06-15 16:31] MED LIST changes: +HYDR-3713 PO; +METF-839 PO; +PROM12.56 PO
[2023-06-15 17:51] LABS: BASO % 0.6 % (0.0-1.0); EOS # 0.2 10^3/uL (0.0-0.5); EOS % 3.7 % (0.0-3.0); HEMOGLOBIN 14.2 g/dl (12.0-15.5); LYMPH # 1.5 10^3/uL (1.5-5.0); MEAN CORPUSCULAR HEMOGLOBIN 30.5 pg (27.0-33.0); MEAN CORPUSCULAR HGB CONC 35.5 g/dl (32.0-36.5); MEAN CORPUSCULAR VOLUME 85.8 fl (80.0-96.0); MONO # 0.3 10^3/uL (0.0-0.8); MONO % 5.3 % (2.0-8.0); NEUTROPHILS # 4.1 10^3/uL (1.5-8.5); NEUTROPHILS % 65.8 % (36.0-66.0); PLATELET COUNT, AUTOMATED 217 10^3/uL (150-450); RED BLOOD COUNT 4.66 10^6/uL (4.00-5.40); WHITE BLOOD COUNT 6.2 10^3/uL (4.0-10.0)
[2023-06-15 18:13] LABS: INR 1.04; PROTHROMBIN TIME 13.3 SECONDS (12.5-14.5)
[2023-06-15 18:14] LABS: PARTIAL THROMBOPLASTIN TIME 22.5 SECONDS (24.8-34.2)
[2023-06-15 18:20] LABS: LIPASE 34 U/L (12-53)
[2023-06-15] MEDS ORDERED: NS 2,580 ML in IV 1 EA IV ONE (18:20)
[2023-06-15 18:23] LABS: ALKALINE PHOSPHATASE 72 U/L (46-116); ALT/SGPT 14 U/L (7.0-40); AST/SGOT 15 U/L (<34); BILIRUBIN,DIRECT < 0.1 MG/DL (<0.4); BILIRUBIN,TOTAL 0.3 MG/DL (0.3-1.2); BLOOD UREA NITROGEN 12 MG/DL (9-23); CALCIUM LEVEL 9.2 MG/DL (8.5-10.1); CARBON DIOXIDE LEVEL 21 MMOL/L (20-31); CHLORIDE LEVEL 104 MMOL/L (98-107); CREATININE FOR GFR 0.54 MG/DL (0.55-1.30); GLOMERULAR FILTRATION RATE > 60.0 (>51); GLUCOSE, FASTING 296 MG/DL (60-100); POTASSIUM SERUM 4.8 MMOL/L (3.5-5.1); SODIUM LEVEL 137 MMOL/L (136-145); TOTAL PROTEIN 7.1 G/DL (5.7-8.2)
[2023-06-15 18:25] LABS: CPK CREATINE PHOSPHOKINASE 69 U/L (34-145); MB/CK RELATIVE INDEX 1.44 (< OR =4)
[2023-06-15] MEDS ORDERED: KETOROLAC 30 MG/ML 1ML VIAL IV ONE (18:45)
[2023-06-15] MEDS ORDERED: MORPHINE 2 MG/ML 1ML VIAL IV PRN (18:50)
[2023-06-15] MEDS ORDERED: ISOVUE-370 76% 100ML VIAL As Ordered ONE (18:58)
[2023-06-15 19:34] LABS: PROCALCITONIN <0.04 ng/ml
[2023-06-15 19:41] LABS: CK-MB VALUE MASS < 1.0 NG/ML (<3.6)
[2023-06-15 19:43] LABS: CPK CREATINE PHOSPHOKINASE 53 U/L (34-145); MB/CK RELATIVE INDEX 1.88 (< OR =4)
[2023-06-15 20:50] LABS: ETHYL ALCOHOL (ETHANOL) < 0.003 % (0.000-0.010)
[2023-06-15] MEDS ORDERED: LORazepam 2 MG/ML 1ML VIAL IV STA (21:17)
[2023-06-15 21:21] LABS: HEMOGLOBIN A1c 9.2 % (4.0-6.0)
[2023-06-16 00:51] LABS: AMPHETAMINES LEVEL URINE NEGATIVE (NEGATIVE); BENZODIAZEPINES URINE NEGATIVE (NEGATIVE); CANNABINOIDS URINE NEGATIVE (NEGATIVE); COCAINE METABOLITE URINE NEGATIVE (NEGATIVE); METHADONE URINE NEGATIVE (NEGATIVE); PHENCYCLIDINE URINE NEGATIVE (NEGATIVE)
[2023-06-16 00:53] LABS: BARBITURATES URINE POSITIVE (NEGATIVE); OPIATES URINE POSITIVE (NEGATIVE)
[2023-06-16 01:30] VITALS: O2SAT 98
[2023-06-16] MEDS ORDERED: PHENAZOPYRIDINE 100 MG TAB PO ONE (01:35)
[2023-06-16] MEDS ORDERED: BACTRIM 160MG/800MG DS TAB PO ONE (01:35)
[2023-06-16] MEDS ORDERED: BACT800T5 PO (01:38)
[2023-06-16] MEDS ORDERED: PYRI1TAB5 PO (01:38)
[2023-06-16 02:10] VITALS: BP 123/74; TEMP 97.8
== END 2023-06-16 02:18 | disposition home or self-care (01) ==
LOC: EDBD 16:31 → M ED 16:31
DX: N39.0 Urinary tract infection, site not specified (principal); H81.4 Vertigo of central origin; Z87.442 Personal history of urinary calculi; N85.2 Hypertrophy of uterus; Z86.73 Personal history of transient ischemic attack (TIA), and cerebral infarction without residual deficits; Z88.5 Allergy status to narcotic agent; Z88.1 Allergy status to other antibiotic agents; Z88.8 Allergy status to other drugs, medicaments and biological substances; Z79.84 Long term (current) use of oral hypoglycemic drugs; Z79.899 Other long term (current) drug therapy
CPT/HCPCS: 70450; 70544; 70551; 71045; 71260; 74177; 80047; 80048; 80076; 80307; 81001; 82077; 82550; 82553; 83036; 83605; 83690; 84145; 85025; 85610; 85730; 87040; 87088; 87186; 87486; 87581; 87633; 87798; 93005; 93041; 96365; 96366; 96375; 99285; J2060; Q9967